=== PATIENT | female | born 1940 | race Caucasian/White ===

== ENCOUNTER 2016-08-01 13:31 | Emergency (ER) | payer SELFPAY ==
[~2016-08-01] VITALS: Ht 170.2 cm; Wt 77.1 kg
--- NOTE | 2016-08-01 13:53 | NUR ---
Patient is resting comfortably on gurney while having animated conversation with the adult son, no sob or respiratory distress seen, no coughing heard at this time-pending MD evaluation
--- NOTE | 2016-08-01 14:21 | NUR ---
MD is at bedside evaluating the patient, pending orders at this time.
[2016-08-01] MEDS ORDERED: IPRATROPIUM BROMIDE 0.5 MG/2.5 ML NEBU NEB ONE (14:30)
[2016-08-01] MEDS ORDERED: ALBUTEROL SULFATE 2.5 MG/3 ML NEBU NEB ONE (14:30)
[2016-08-01] MEDS ORDERED: ALBUTEROL SULFATE 2.5 MG/3 ML NEBU ONE (14:52)
[2016-08-01] MEDS ORDERED: IPRATROPIUM BROMIDE 0.5 MG/2.5 ML NEBU ONE (14:52)
[2016-08-01] MEDS ORDERED: ALBUTEROL SULFATE 2.5 MG/ 0.5 ML NEBU ONE (14:52)
[2016-08-01 14:56] LABS: BASOPHILS # (AUTO) 0.1 K/uL (0.0-8.0); BASOPHILS % (AUTO) 1.4 % (0.0-2.0); EOSINOPHILS # (AUTO) 0.1 K/uL (0.0-0.7); EOSINOPHILS % (AUTO) 1.2 % (0.0-7.0); HEMATOCRIT 40.5 % (37-47); HEMOGLOBIN 13.5 G/DL (12.0-16.0); LYMPHOCYTES # (AUTO) 0.6 K/UL (0.8-4.8); LYMPHOCYTES % (AUTO) 6.9 % (20.5-51.5); MEAN CORPUSCULAR HEMOGLOBIN 30.6 UUG (27.0-31.0); MEAN CORPUSCULAR HGB CONC 33 g/dL (32.0-37.0); MONOCYTES # (AUTO) 0.8 K/UL (0.1-1.30); NEUTROPHILS # (AUTO) 7.4 K/UL (1.8-8.9); NEUTROPHILS % (AUTO) 81.5 % (38.5-71.5); PLATELET COUNT (AUTO) 186 K/UL (150-450)
[2016-08-01 15:04] LABS: CARBON DIOXIDE 28 mmol/L (21-32); CHLORIDE 100 mmol/L (98-107); CREATININE 0.7 mg/dL (0.6-1.3); GLUCOSE 124 mg/dL (74-106); POTASSIUM 4.3 mmol/L (3.5-5.1); UREA NITROGEN, BLOOD 15 mg/dL (7-18)
[2016-08-01 15:17] LABS: ALANINE AMINOTRANSFERASE 12 U/L (14-59); ALKALINE PHOSPHATASE 72 U/L (50-136); ASPARTATE AMINOTRANSFERASE 21 U/L (15-37); BILIRUBIN,DIRECT 0.2 mg/dL (0.0-0.2); BILIRUBIN,TOTAL 0.8 mg/dL (0.2-1.0); TOTAL PROTEIN, SERUM 7.2 g/dL (6.4-8.2)
[2016-08-01] MEDS ORDERED: methylPREDNISolone SOD SUCC 40 MG/ML VIAL IV ONE (16:00)
[2016-08-01] MEDS ORDERED: methylPREDNISolone SOD SUCC 40 MG/ML VIAL ONE ×2 (16:17)
--- NOTE | 2016-08-01 16:45 | NUR ---
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
--- NOTE | 2016-08-01 16:57 | NUR ---
IV removed@[phone]. Catheter intact and site benign. Pressure and 4x4 gauze applied to site. No bleeding noted. Patient discharged to home in stable conditon. Written and verbal after care instructions given to patient's adult [place]-speaking son. Patient's family verbalizes understanding of instructions.
== END 2016-08-01 16:57 | disposition home or self-care (01) ==
LOC: ER 13:34
DX: J44.9 Chronic obstructive pulmonary disease, unspecified (principal); Z88.0 Allergy status to penicillin; Z95.0 Presence of cardiac pacemaker
CPT/HCPCS: 36415; 71010; 80048; 80076; 83605; 83880; 84484; 85025; 87040 ×2; 93005; 94640; 96374; 99285; A4663; J2920 ×2; J3590; 70030-TC

== ENCOUNTER 2016-08-05 16:45 | Inpatient (IN) | payer SELFPAY ==
[~2016-08-05] VITALS: Ht 167.6 cm; Wt 77.1 kg
[2016-08-05] MEDS ORDERED: APIX5TAB PO (17:07)
[2016-08-05] MEDS ORDERED: PRED10TA PO (17:07)
[2016-08-05] MEDS ORDERED: [UNRECOGNIZED DRUG - OTHER] (17:07)
[2016-08-05] MEDS ORDERED: [UNRECOGNIZED DRUG - OTHER] (17:09)
[2016-08-05] MEDS ORDERED: [UNRECOGNIZED DRUG - REMARK] (17:09)
[2016-08-05] MEDS ORDERED: IPRATROPIUM BROMIDE 0.5 MG/2.5 ML NEBU NEB ONE (17:45)
[2016-08-05] MEDS ORDERED: ALBUTEROL SULFATE 2.5 MG/3 ML NEBU NEB ONE (17:45)
[2016-08-05] MEDS ORDERED: methylPREDNISolone SOD SUCC 125 MG/2 ML VIAL IV ONE (17:45)
[2016-08-05] MEDS ORDERED: IPRATROPIUM BROMIDE 0.5 MG/2.5 ML NEBU ONE (17:52)
[2016-08-05] MEDS ORDERED: ALBUTEROL SULFATE 2.5 MG/3 ML NEBU ONE (17:52)
[2016-08-05 17:56] LABS: ABG BASE EXCESS -0.4 mmol/L; ABG HCO3 23.5 mmol/L; ABG PCO2 36.2 mmHg (35.0-45.0); ABG PO2 77.2 mmHg (75.0-100.0); ABG SITE RIGHT RADIAL; ABG TOTAL HEMOGLOBIN 13.8 G/dL (12.0-16.0); COHb 1.4 % (0.5-1.5); MetHb 0.4 % (0.0-1.5); O2Hb 93.4 % (94.0-97.0); VENT MODE Room Air
[2016-08-05 17:56] LABS: BASOPHILS # (AUTO) 0.3 K/uL (0.0-8.0); BASOPHILS % (AUTO) 4.1 % (0.0-2.0); EOSINOPHILS # (AUTO) 0.1 K/uL (0.0-0.7); EOSINOPHILS % (AUTO) 0.6 % (0.0-7.0); HEMATOCRIT 41.1 % (37-47); HEMOGLOBIN 13.5 G/DL (12.0-16.0); LYMPHOCYTES # (AUTO) 0.9 K/UL (0.8-4.8); LYMPHOCYTES % (AUTO) 10.8 % (20.5-51.5); MEAN CORPUSCULAR HGB CONC 33 g/dL (32.0-37.0); MEAN CORPUSCULAR VOLUME 91.1 FL (81.0-99.0); MONOCYTES # (AUTO) 0.7 K/UL (0.1-1.30); MONOCYTES % (AUTO) 8.7 % (0.0-11.0); NEUTROPHILS # (AUTO) 6.5 K/UL (1.8-8.9); NEUTROPHILS % (AUTO) 75.8 % (38.5-71.5); PLATELET COUNT (AUTO) 202 K/UL (150-450); RED BLOOD CELL COUNT(AUTO) 4.51 MIL/UL (4.2-5.4); WHITE BLOOD COUNT (AUTO) 8.5 K/UL (4.0-11.2)
[2016-08-05 18:08] LABS: CARBON DIOXIDE 29 mmol/L (21-32); CHLORIDE 102 mmol/L (98-107); CREATININE 0.8 mg/dL (0.6-1.3); GLUCOSE 127 mg/dL (74-106); POTASSIUM 4.6 mmol/L (3.5-5.1); UREA NITROGEN, BLOOD 20 mg/dL (7-18)
[2016-08-05 18:17] LABS: BAND % (MANUAL) 5 % (0-10); EOSINOPHILS % (MANUAL) 1 % (0-8); LYMPHOCYTES % (MANUAL) 9 % (20-40); MONOCYTES % (MANUAL) 7 % (2-10); NEUTROPHILS % (MANUAL) 78 % (42-75)
[2016-08-05 18:20] LABS: ALANINE AMINOTRANSFERASE 16 U/L (14-59); ALKALINE PHOSPHATASE 69 U/L (50-136); ASPARTATE AMINOTRANSFERASE 26 U/L (15-37); BILIRUBIN,DIRECT 0.3 mg/dL (0.0-0.2); BILIRUBIN,TOTAL 0.8 mg/dL (0.2-1.0); TOTAL PROTEIN, SERUM 7.1 g/dL (6.4-8.2)
[2016-08-05] MEDS ORDERED: methylPREDNISolone SOD SUCC 125 MG/2 ML VIAL ONE (18:28)
--- NOTE | 2016-08-05 18:32 | NUR ---
PT IS IN ROOM #1B. DR STAHL EVALUATED THE PT.
[2016-08-05] MEDS ORDERED: IOHEXOL 350 100 ML INFUS..BTL ONE (19:59)
[2016-08-05] MEDS ORDERED: NORMAL SALINE FLUSH 10 ML DISP.SYRIN ONE (19:59)
[2016-08-05] MEDS ORDERED: IV NORMAL SALINE 250 ML IV ONE (19:59)
[2016-08-05] MEDS ORDERED: LEVOFLOXACIN 750MG/D5W 150 ML IV ONE ×2 (20:00→20:09)
--- NOTE | 2016-08-05 21:47 | NUR ---
Pt. admitted to Telemetry , under care of Evangelina Escobar NP. Dx: Shortness of Breath/ Cough Belongs List completed
--- NOTE | 2016-08-05 22:00 | NUR ---
PATIENT BROUGHT HER OWN MEDICATIONS, PER SON, THAT PATIENT NEEDS TO TAKE THOSE MEDICATION FOR HEART, EXPLAINED TO SON THAT MD AWARE OF THOSE MEDICATIONS, AND TEACH PATIENT NOT TO TAKE EXTRA MEDICATIONS THAT NOT ORDER BY MD AT THIS TIME. ASKED THE SON TO TAKE THOSE MEDICATIONS HOME, AND MD WILL BE NOTIFIED IN AM REGARDING THEIR QUESTIONS, PATIENT AGREED WITH THE TEACHING. SON INTERPRET FOR THE PATIENT.
[2016-08-05 22:07] VITALS: BP 141/79
[2016-08-05 22:09] VITALS: BP 141/79
[2016-08-05] MEDS ORDERED: MAGNESIUM HYDROXIDE 30 ML LIQUID UDC PO PRN (23:15)
[2016-08-05] MEDS ORDERED: ONDANSETRON 4 MG/2 ML VIAL IV PRN (23:15)
[2016-08-05] MEDS ORDERED: Z GUARD REMEDY PASTE 57 GM TUBE TOP PRN (23:15)
[2016-08-05] MEDS ORDERED: ZOLPIDEM 5 MG TABLET PO PRN (23:15)
[2016-08-05] MEDS ORDERED: ACETAMINOPHEN 325 MG TABLET PO PRN (23:15)
[2016-08-05] MEDS ORDERED: HYDROCODONE/APAP 5-325MG TABLET PO PRN (23:15)
[2016-08-06] VITALS: BP 131/64
[2016-08-06 04:00] VITALS: BP 139/68
[2016-08-06 06:36] LABS: CARBON DIOXIDE 28 mmol/L (21-32); CHLORIDE 103 mmol/L (98-107); CHOLESTEROL 139 mg/dL (<200); CREATININE 0.7 mg/dL (0.6-1.3); GLUCOSE 200 mg/dL (74-106); HDL CHOLESTEROL 63 mg/dL (40-60); MAGNESIUM 1.9 mg/dL (1.8-2.4); PHOSPHOROUS 3.6 mg/dL (2.5-4.9); POTASSIUM 4.2 mmol/L (3.5-5.1); TRIGLYCERIDES 36 MG/DL (30-150); UREA NITROGEN, BLOOD 18 mg/dL (7-18)
--- NOTE | 2016-08-06 06:43 | NUR ---
PATIENT SLEPT MOST OF THE NIGHT NO SOB NO CHEST PAIN, NOTED, WITH EPISODE NON PRODUCTIVE COUGH, PATIENT RYTHM ATRIAL PACING MOST OF THE TIME, AND HAS AV PACING FOR SHORT PERIOD OF TIME. CONT ON OXYGEN 2LITERS NC. OXYGEN SAT WNL 96% NO S/S OF DISTRESS.
[2016-08-06 06:52] LABS: BASOPHILS % (AUTO) 0.1 % (0.0-2.0); EOSINOPHILS % (AUTO) 0.1 % (0.0-7.0); HEMATOCRIT 40.6 % (37-47); HEMOGLOBIN 13.5 G/DL (12.0-16.0); LYMPHOCYTES # (AUTO) 0.4 K/UL (0.8-4.8); MEAN CORPUSCULAR HEMOGLOBIN 30.6 UUG (27.0-31.0); MEAN CORPUSCULAR HGB CONC 33 g/dL (32.0-37.0); MEAN CORPUSCULAR VOLUME 92.2 FL (81.0-99.0); MONOCYTES % (AUTO) 0.5 % (0.0-11.0); NEUTROPHILS # (AUTO) 7.2 K/UL (1.8-8.9); NEUTROPHILS % (AUTO) 94.3 % (38.5-71.5); PLATELET COUNT (AUTO) 184 K/UL (150-450); WHITE BLOOD COUNT (AUTO) 7.6 K/UL (4.0-11.2)
[2016-08-06] MEDS ORDERED: predniSONE 20 MG TABLET PO SCH (08:00)
--- NOTE | 2016-08-06 08:00 | NUR ---
Sleeping, comfortable. O2 at 2L/NC
[2016-08-06] MEDS: PANTOPRAZOLE SODIUM 40 MG TABLET.DR PO SCH (08:36)
[2016-08-06] MEDS ORDERED: predniSONE 10 MG TABLET PO SCH (09:00)
[2016-08-06] MEDS ORDERED: APIXABAN 5 MG TABLET PO ONE (09:00)
[2016-08-06 11:41] VITALS: BP 131/70
--- NOTE | 2016-08-06 14:00 | NUR ---
Dr. Barreto seen patient and spoke to family.
[2016-08-06] MEDS: methylPREDNISolone SOD SUCC 40 MG/ML VIAL IV SCH ×2 (14:04→22:28)
[2016-08-06] MEDS: DILTIAZEM HCL 30 MG TABLET PO SCH ×2 (14:04→17:59)
[2016-08-06 15:38] VITALS: BP 155/81
[2016-08-06] MEDS ORDERED: APIXABAN 5 MG TABLET PO SCH (17:00)
[2016-08-06] MEDS: ELIQUIS 5 MG PO SCH (17:56)
--- NOTE | 2016-08-06 18:12 | NUR ---
Pacemaker checked, with normal function
[2016-08-06 20:00] VITALS: BP 124/65
[2016-08-07] VITALS: BP 124/68
[2016-08-07] MEDS: DILTIAZEM HCL 30 MG TABLET PO SCH ×3 (00:05→12:13)
--- NOTE | 2016-08-07 03:32 | NUR ---
HANDS OFF REPORT FROM MARILEE CLINTON.
--- NOTE | 2016-08-07 03:41 | NUR ---
No episodes of SOB, assisted w/ all needs. A-paced on the monitor. Vital signs are stable. Report given to Diomedes HUNT
[2016-08-07 04:00] VITALS: BP 125/76
--- NOTE | 2016-08-07 05:21 | NUR ---
PT SLEEPING AT THIS TIME, AROUSABLE TO TOUCH AND NAME. IN NO ACUTE SIGNS OF DISTRESS. SAFETY MAINTAINED. CALL LIGHT WITHIN REACH.
[2016-08-07] MEDS: methylPREDNISolone SOD SUCC 40 MG/ML VIAL IV SCH ×2 (05:50→14:00)
[2016-08-07] MEDS: PANTOPRAZOLE SODIUM 40 MG TABLET.DR PO SCH (06:14)
[2016-08-07 06:36] LABS: BASOPHILS % (AUTO) 0.1 % (0.0-2.0); EOSINOPHILS # (AUTO) 0.1 K/uL (0.0-0.7); EOSINOPHILS % (AUTO) 0.7 % (0.0-7.0); HEMATOCRIT 41.6 % (37-47); HEMOGLOBIN 13.7 G/DL (12.0-16.0); LYMPHOCYTES # (AUTO) 0.7 K/UL (0.8-4.8); LYMPHOCYTES % (AUTO) 6.8 % (20.5-51.5); MEAN CORPUSCULAR HEMOGLOBIN 30.7 UUG (27.0-31.0); MEAN CORPUSCULAR HGB CONC 33 g/dL (32.0-37.0); MEAN CORPUSCULAR VOLUME 92.9 FL (81.0-99.0); MONOCYTES # (AUTO) 0.1 K/UL (0.1-1.30); NEUTROPHILS # (AUTO) 8.9 K/UL (1.8-8.9); NEUTROPHILS % (AUTO) 91.4 % (38.5-71.5); PLATELET COUNT (AUTO) 223 K/UL (150-450); RED BLOOD CELL COUNT(AUTO) 4.48 MIL/UL (4.2-5.4); WHITE BLOOD COUNT (AUTO) 9.8 K/UL (4.0-11.2)
[2016-08-07 06:51] LABS: CARBON DIOXIDE 29 mmol/L (21-32); CHLORIDE 102 mmol/L (98-107); CREATININE 0.6 mg/dL (0.6-1.3); GLUCOSE 186 mg/dL (74-106); PHOSPHOROUS 3.4 mg/dL (2.5-4.9); UREA NITROGEN, BLOOD 18 mg/dL (7-18)
[2016-08-07] MEDS ORDERED: LEVOTHYROXINE SODIUM 50 MCG TABLET PO SCH (07:00)
--- NOTE | 2016-08-07 08:04 | NUR ---
RESTING IN BED WITH EYES CLOSED NO SIGNS OF PAIN OR SOB WITH O2 AT 2L NC. PACED ULR SR. AFEBRILE
[2016-08-07] MEDS: ELIQUIS 5 MG PO SCH (08:21)
--- NOTE | 2016-08-07 09:52 | NUR ---
SEEN BY DR SPRINGER STATUS CHANGED TO MS
[2016-08-07] MEDS ORDERED: PRED50TA PO (10:33)
[2016-08-07] MEDS ORDERED: ALBU0.63 NEB (10:33)
[2016-08-07] MEDS ORDERED: LEVO50TA8 PO (10:33)
[2016-08-07] MEDS ORDERED: LEVO750T21 PO (10:34)
--- NOTE | 2016-08-07 10:54 | NUR ---
SEEN BY DR RAUSCH WITH DISCHARGE ORDERS
[2016-08-07 11:39] VITALS: BP 125/69
--- NOTE | 2016-08-07 14:03 | NUR ---
SOLUMEDROL NOT GIVEN HEPLOCK DCD
[2016-08-07 14:29] VITALS: BP 118/63
--- NOTE | 2016-08-07 14:43 | NUR ---
DCD HOME STABLE ACCOMPANIED BY SON WITH RX AND FOLLOW-UP INSTRUCTION
== END 2016-08-07 15:15 | disposition home or self-care (01) | DRG 191 ==
LOC: ER 16:46 → TELE 21:30 → MED 08-07 10:08
PROVIDERS: ADMIT Family Medicine; ATTEND Internal Medicine
PROC: 4B02XSZ Measurement of Cardiac Pacemaker, External Approach (ICD-10-PCS; principal; 2016-08-06)
DX: J44.1 Chronic obstructive pulmonary disease with (acute) exacerbation (principal); D68.59 Other primary thrombophilia; I48.0 Paroxysmal atrial fibrillation; E03.9 Hypothyroidism, unspecified; I25.10 Atherosclerotic heart disease of native coronary artery without angina pectoris; I49.5 Sick sinus syndrome; Z79.01 Long term (current) use of anticoagulants; Z79.52 Long term (current) use of systemic steroids; Z95.0 Presence of cardiac pacemaker; Z88.0 Allergy status to penicillin
CPT/HCPCS: 36415; 36600; 70030-TC; 71010; 71275; 83605; 83735; 84100; 84443; 85025; 85730; 87040; 93005; 93307; A4663; J1956; J2920; J2930; J3490; J3590; J7030; J7050; J7512; Q9967